=== PATIENT | female | born 1965 | race Caucasian/White ===

== ENCOUNTER 2018-07-13 14:34 | Outpatient (CLI) | payer MEDICAID ==
--- NOTE | 2018-07-13 15:57 | Mammography Report ---
BILATERAL DIGITAL SCREENING MAMMOGRAM WITH CAD: 07/13/18 14:34:00 CLINICAL: Routine screening. COMPARISON:No comparison. She does not recall where she has previously had a mammogram. FINDINGS: The breasts are heterogeneously dense, which may obscure small masses. Multiple bilateral small low density circumscribed nodules of varying sizes. Bilateral upper outer clustered calcifications require additional imaging. IMPRESSION: Bilateral calcifications and bilateral low density nodules requiring further workup. BI-RADS CATEGORY: 0 -- Additional Imaging Evaluation Required RECOMMENDATION: Recall for bilateral ML and spot magnification CC and ML mammographic views and bilateral global breast ultrasound. ACR BI-RADS MAMMOGRAPHIC CODES: 0 = Needs additional imaging evaluation; 1 = Negative; 2 = Benign; 3 = Probably benign; 4 = Suspicious; 5 = Malignant; 6 = Known biopsy-proven malignancy COMMENT: 1. Dense breast tissue, i.e., adenosis, fibrocystic changes, etc., may obscure an underlying neoplasm. 2. Approximately 10% of cancers are not detected with mammography. 3. A negative mammography report should not delay biopsy if a clinically suspicious mass is present. COMMENT: Patient follow-up letters are generated via our [employer] application.
== END 2018-07-13 14:35 | disposition home or self-care (01) ==
LOC: SPVWC 14:34
PROVIDERS: ATTEND Surgery
DX: Z12.31 Encounter for screening mammogram for malignant neoplasm of breast (principal)
CPT/HCPCS: 77067

== ENCOUNTER 2018-08-05 14:20 | Outpatient (CLI) | payer MEDICAID ==
--- NOTE | 2018-08-06 11:23 | Ultrasound Report ---
BILATERAL DIGITAL DIAGNOSTIC MAMMOGRAM and BILATERAL BREAST ULTRASOUND: 08/05/18 14:20:00 CLINICAL: Recalled to evaluate bilateral calcifications and bilateral low-density circumscribed nodular densities. COMPARISON:07/13/18 screening FINDINGS: Bilateral LM and CC and ML magnification views were performed. 3 groups of right outer calcifications and similar morphology. The calcifications are largely amorphous and low density with no layering on lateral views. A single group of left upper outer relatively dense round calcifications. No associated masses or architectural distortion with calcifications. Ultrasound of the right breast (including all four quadrants and the retroareolar area) was performed and demonstrated a few benign cysts and no solid mass or shadowing. A cyst at 4 o'clock 4 cm from the nipple measures 4 x 4 by 2 mm. Cyst at 10 o'clock 8 cm from the nipple measures 10 x 9 x 4 mm. A cyst at 10 o'clock 5 cm from the nipple measures 5 x 6 x 3 mm. There is a questionable tiny echogenic mural nodule in the wall of this cyst. Ultrasound of the left breast (including all four quadrants and the retroareolar area) was performed and demonstrated a few benign cysts and no solid mass or shadowing. A cyst at 3 o'clock 2 cm from the nipple measures 5 x 4 x 4 mm. A cyst at 5 o'clock 4 cm from nipple measures 4 x 4 x 2 mm. Cyst at 9 o'clock 6 cm from the nipple measures 4 x 6 x 4 mm. IMPRESSION: Probably benign bilateral calcifications and bilateral benign cysts. BI-RADS CATEGORY: 3 - - Probably Benign RECOMMENDATION: 6 month followup bilateral diagnostic mammogram with magnification views of calcifications and a followup targeted right breast ultrasound to reevaluate the cyst with a questionable mural nodule at 10 o'clock 5 cm from the nipple. ACR BI-RADS MAMMOGRAPHIC CODES: 0 = Needs additional imaging evaluation; 1 = Negative; 2 = Benign; 3 = Probably benign; 4 = Suspicious; 5 = Malignant; 6 = Known biopsy-proven malignancy COMMENT: 1. Dense breast tissue, i.e., adenosis, fibrocystic changes, etc., may obscure an underlying neoplasm. 2. Approximately 10% of cancers are not detected with mammography. 3. A negative mammography report should not delay biopsy if a clinically suspicious mass is present. COMMENT: Patient follow-up letters are generated via our [email or web address] application.
== END 2018-08-05 14:21 | disposition home or self-care (01) ==
LOC: SPVWC 14:20
PROVIDERS: ATTEND Surgery
DX: R92.8 Other abnormal and inconclusive findings on diagnostic imaging of breast (principal)
CPT/HCPCS: 77066